=== PATIENT | female | born 1970 | race Two or more races ===

== ENCOUNTER 2023-02-09 18:12 | Emergency (ER) | payer MEDICAID, OTHER ==
[~2023-02-09] VITALS: Ht 165.1 cm; Wt 72.0 kg
[2023-02-09 19:54] VITALS: BP 122/72
[2023-02-09] MEDS ORDERED: ACETAMINOPHEN 325 MG TAB PO ONE (20:30)
[2023-02-09] MEDS ORDERED: IBUP800T27 PO (20:40)
[2023-02-09] MEDS ORDERED: CYCL-837 PO (20:40)
== END 2023-02-09 21:55 | disposition home or self-care (01) ==
LOC: EDBD 18:12 → ER 18:12
DX: S16.1XXA Strain of muscle, fascia and tendon at neck level, initial encounter (principal); S29.012A Strain of muscle and tendon of back wall of thorax, initial encounter; S39.012A Strain of muscle, fascia and tendon of lower back, initial encounter; R51.9 Headache, unspecified; V43.52XA Car driver injured in collision with other type car in traffic accident, initial encounter; Y93.89 Activity, other specified; Y92.488 Other paved roadways as the place of occurrence of the external cause; Y99.8 Other external cause status
CPT/HCPCS: 70450; 72070; 72100; 72125